=== PATIENT | male | born 1985 | race Caucasian/White ===

== ENCOUNTER 2023-08-27 21:33 | Inpatient (IN) | payer SELFPAY ==
[2023-08-27 21:45] VITALS: BMI 43.7
[2023-08-27] MEDS ORDERED: HYDROMORPHONE HCL 1 MG/ML INJ IV PRN (21:57)
[2023-08-27] MEDS ORDERED: ONDANSETRON 4 MG/2 ML VIAL IV PRN (21:57)
[2023-08-27] MEDS: Ringers Lactate 1,000 ML IV SCH (22:10)
[2023-08-28] MEDS ORDERED: PIPER TAZO 3.375 GM in NA CHLORIDE 0.9% 100 ML IV SCH (01:00)
[2023-08-28 04:04] LABS: Absolute Lymphocytes (CBC) 1.4 K/uL (0.7-4.9); Hematocrit 39.7 % (39.6-49.0); Lymphocytes % 17.7 % (15.3-44.8); MCV 84.4 fL (80-100); Platelets 208 thou/uL (152-406)
[2023-08-28] MEDS: PIPER TAZO 3.375 GM in NA CHLORIDE 0.9% 100 ML IV SCH ×3 (04:51→20:26)
[2023-08-28] MEDS ORDERED: SUCCINYLCHOLINE 20 MG/ML (10 ML) IV ONE (07:21)
[2023-08-28] MEDS ORDERED: LIDOCAINE 2% MPF 5 ML VIAL ONE (07:31)
[2023-08-28] MEDS ORDERED: ROCURONIUM 50 MG/5 ML VIAL IV ONE (07:31)
[2023-08-28] MEDS ORDERED: FENTANYL CITR 250 MCG/5 ML ONE (07:31)
[2023-08-28] MEDS ORDERED: propofoL 200 MG/20 ML VIAL IV ONE (07:31)
[2023-08-28] MEDS ORDERED: MIDAZOLAM HCL 2 MG/2 ML INJ ONE (07:31)
[2023-08-28] MEDS: BUPIVACAINE 0.5% PF 10 ML VIAL ONE ×2 (07:44→08:30)
[2023-08-28] MEDS: Ringers Lactate 1,000 ML IV ONE ×2 (07:44→07:45)
--- NOTE | 2023-08-28 07:53 | P.HP ---
Date of Service: 08/28/23 Chief complaint: Abdominal pain History of present Illness: Patient is a 38-year-old gentleman comes in with approximately 36-hour history of periumbilical pain localizing to the right lower quadrant. Patient has had this episode several times in the last few months. Patient denies any nausea or vomiting. No anorexia. No diarrhea, constipation, bright red blood per rectum, dysuria or hematuria. No sore throat, runny nose, headaches, dizziness or chest pain. Review of systems: Otherwise unremarkable Past medical history: Negative Past surgical history: Negative Allergies: None Social history: Patient denies smoking, drinks alcohol occasionally Family history: Noncontributory Vital signs: Stable except for heart rate being elevated slightly, afebrile Physical exam: Awake, alert and oriented x 3 Head and neck: No neck masses, no JVD, throat clear and neck supple Chest: Clear Heart: S1-S2 Abdomen: Soft, nondistended, positive bowel sounds, right lower quadrant tenderness with minimal rebound no rigidity or guarding Extremity: Neurovascular intact, nontender Neuro: Nonfocal Diagnostic data: White count is normal, there was a left shift on the initial CBC in the [facility]. CT of the abdomen pelvis done in [facility] shows uncomplicated acute appendicitis. Assessment: Acute appendicitis Plan/recommendation: Admit, n.p.o., IV fluids, IV antibiotics and to the OR for laparoscopic appendectomy possible open. Patient understands risk, benefits and alternatives and agrees to procedure. We will get an EKG as a baseline prior to surgery. CC:
[2023-08-28] MEDS ORDERED: SUGAMMADEX SODIUM 200 MG/2 ML VIAL IV ONE (08:46)
[2023-08-28] MEDS ORDERED: ONDANSETRON 4 MG/2 ML VIAL ONE ×2 (08:55)
[2023-08-28] MEDS ORDERED: HYDROMORPHONE HCL 1 MG/ML INJ IV PRN (09:36)
--- NOTE | 2023-08-28 09:40 | P.OP ---
Date of Service: 08/28/23 Preop diagnosis: Acute appendicitis Postop diagnosis: Same Procedure performed: Laparoscopic appendectomy Surgeon: Hector Hinds MD Frame Maker: Melonie VINCENT Estimated blood loss: Minimal Specimen: Appendix Findings: As above Anesthesia: General Complications: None Drains: None Fluids and blood products: Nonapplicable Disposition: Recovery room Operative note: Patient brought to the OR and placed in supine position. General anesthesia begun. Patient prepped and draped in the usual sterile fashion. Marcaine 0.5% infiltrated locally. 15 blade used to make a 1.5 cm supraumbilical midline incision. Subcu tissue divided. Bleeding controlled cautery. Fascia identified and divided with 15 blade. Peritoneal cavity entered with sharp and blunt dissection. 12 mm trocar placed into the peritoneal cavity under direct vision. Pneumoperitoneum established. 2 5 mm trocars placed. 1 trocar placed in the suprapubic region and the other 1 in the left lower quadrant. They were placed under direct vision. Laparoscopy revealed acute suppurative appendicitis in the right lower quadrant with fibrinous exudate present. Appendix identified as well as the mesoappendix on the base of the cecum. Endo DENIS stapling device used to sequentially to divide the mesoappendix as well as the base of the appendix on the cecum. Appendix retrieved to the umbilicus via Endo Catch bag. Right lower quadrant irrigated effluent clear no evidence of bleeding or bowel injury appreciated. There was no other evidence of disease seen in the peritoneal cavity.: Small intestine, peritoneal surface, liver, gallbladder and stomach were within normal limits. All trocars removed under direct vision. Stay sutures were tied to each other to reapproximate the fascial defect. Subcutaneous wound irrigated and bleeding controlled cautery. 3-0 chromic used to approximate subcutaneous tissue and close skin. Sterile dressing applied. Patient awakened and taken to recovery room in good general condition. CC:
[2023-08-28] MEDS ORDERED: Ringers Lactate 1,000 ML IV ONE (09:43)
[2023-08-28] MEDS: Ringers Lactate 1,000 ML IV SCH ×2 (10:32→20:26)
[2023-08-28] MEDS: HYDROCODONE/APAP 7.5/325 MG TAB PO PRN ×2 (12:34→20:26)
[2023-08-29] MEDS: Ringers Lactate 1,000 ML IV SCH (04:00)
[2023-08-29] MEDS: PIPER TAZO 3.375 GM in NA CHLORIDE 0.9% 100 ML IV SCH (05:54)
[2023-08-29 06:39] LABS: Hematocrit 37.7 % (39.6-49.0); Lymphocytes % 16.1 % (15.3-44.8); MCV 84.5 fL (80-100); MPV 8.9 fL (7.6-11.3); Platelets 189 thou/uL (152-406); RBC Red Blood Cell Count 4.46 M/uL (4.33-5.43)
[2023-08-29 08:17] VITALS: O2SAT 96
[2023-08-29 08:59] VITALS: BP 123/58; TEMP 98.4
--- NOTE | 2023-08-29 10:45 | DS ---
Date of Discharge: 08/29/2023 Admitting Diagnosis: Acute appendicitis. Discharge Diagnosis: Acute appendicitis. Procedure Performed: Laparoscopic appendectomy. Hospital Course: The patient is a 38-year-old gentleman underwent laparoscopic appendectomy yesterda y morning after being transferred from [place] with a diagnosis of acute appendicitis. Postoperativel y, he is tolerating diet, ambulating, pain controlled with p.o. pain medication, afebrile. H and H a re stable. Therefore, patient will be discharged to home. Disposition: Home. Condition: Stable. Discharge Instructions: Resume home medications and diet. Activity as tolerated. No heavy lifting. Follow up in my office a week, call for appointment. Remove outer dressing and shower. Keep Steri -Strips on at all times. Incentive spirometry as instructed and [place], [place], [place] 7.5 and Colace called in to patient's pharmacy. /MODL Voice ID: [id number] Report ID: [id number]
--- NOTE | 2023-08-30 17:53 | EKG ---
Test Date: 2023-08-28 Test Time: 08:55:55 Duplicator Punch Operator: KRYSTLE MEASUREMENT RESULTS: Intervals: Rate: 102 AK: 220 QRSD: 96 QT: 344 QTc: 448 Russell: P: 15 AK: 220 QRS: 30 T: -1 INTERPRETIVE STATEMENTS: Sinus tachycardia with 1st degree AV block Otherwise normal ECG No previous ECG available for comparison Electronically Signed On 08-30-23 17:50:48 [employer] SALESM[employer] by Vince Mcarthur
== END 2023-08-29 11:00 | disposition home or self-care (01) | DRG 399 ==
LOC: 2ND 21:33
PROVIDERS: ADMIT Surgery; ATTEND Surgery
PROC: 0DTJ4ZZ Resection of Appendix, Percutaneous Endoscopic Approach (ICD-10-PCS; principal; 2023-08-28 08:00)
DX: K35.80 Unspecified acute appendicitis (principal)
CPT/HCPCS: 36415; 85025; 88304; 93005; 94010; J2001; J2250; J2405; J2543; J2704; J3010; J7120